=== PATIENT | male | born 1940 | race Caucasian/White ===

== ENCOUNTER 2017-01-07 12:52 | Emergency (ER) | payer MEDICARE ==
--- NOTE | 2017-01-07 15:38 | ER NURSING DOCUMENTATION ---
Nurse's Notes [facility] Name:Shane Dougherty Age:76 yrs Sex:Male :1940 Arrival Date:01/07/2017 Time:12:52 Bed6 Private MD: Diagnosis:Hand Laceration-4cm length; Simple Closure by MD Presentation: 01/07 12:56 Presenting complaint: Patient states: Was making a knife and had the it in a clamp, the rs knife came loose and cut his hand along the left 2nd digit. Occurred just [employer]. Tetanus is UTD. Transition of care: Home. Complicating Factors: There are no complicating factors for this patient. 12:56 Acuity: GÓMEZ 3 rs 12:56 Method Of Arrival: Private Vehicle rs Triage Assessment: 13:20 General: Appears in no apparent distress, comfortable, well developed, well nourished, rs well groomed, Behavior is anxious, cooperative, pleasant. Pain: Denies pain. Neuro: No deficits noted. Level of Consciousness is awake, alert, Oriented to person, place, time, event. Cardiovascular: No deficits noted. Capillary refill < 3 seconds Pulses are 3+ in right radial artery and left radial artery. Respiratory: No deficits noted. Respiratory effort is even, unlabored, Respiratory pattern is regular, symmetrical. Musculoskeletal: No deficits noted. Circulation, motion, and sensation intact Capillary refill < 3 seconds Range of motion intact in Left 2nd digit Denies weakness in left 2nd digit. Injury Description: Laceration sustained to left 2nd digit is clean, 2.6 to 7.5 cm long, bleeding moderately, is bleeding moderately. Historical: - Allergies: No known drug Allergies; - Home Meds: 1. Lisinopril Oral - PMHx: Hypertension; - PSHx: None; - Tetanus: < 10 years. - Ebola Screening: : Patient negative for fever greater than or equal to 101.5 degrees Fahrenheit, and additional compatible Ebola Virus Disease symptoms. Patient denies exposure to infectious person. Patient denies travel to an Ebola-affected area in the 21 days before illness onset. No symptoms or risks identified at this time. . - Immunization history: Unable to Obtain. - Social history: Smoking status: Patient states was never smoker of tobacco. Screenin:36 Infectious Disease Risk None. Abuse screen: Denies threats or abuse. Nutritional rs screening: No deficits noted. Assessment: 13:35 See Triage Assessment done by same RN. rs Vital Signs: 13:03 BP 120 / 86 (auto/); rs 13:07 Pulse 61; Resp 20; Temp 97.9; Pulse Ox 92% on R/A; Pain 3/10; rs Pat Coma Score: 13:20 Eye Response: spontaneous(4). Verbal Response: oriented(5). Motor Response: obeys cd commands(6). Total: 15. ED Course: 12:53 Patient arrived in ED. we 12:55 Luna Conway, RN is Primary Nurse. rs 13:15 Notified ED Physician of patient's arrival and chief complaint. Dr. Chambers notified. Arm rs band placed on Bed in low position Call Light in Reach HOB Elevated Side rails up x1. Family accompanied patient. Bandage applied. Pressure dressing applied. 13:19 Triage completed. rs 13:36 Wound care to laceration was Irrigation with: per MD at his request. rs 13:37 Resting quietly. rs 13:51 Brendan Chambers MD is Attending Physician. cd 15:32 Wound care located on left hand was dressed with bacitracin 4X4s, Telfa jazmin wrap, rs Patient tolerated well. Administered Medications: No medications were administered Outcome: 15:19 Discharge ordered by MD. cd 15:37 Discharged to home ambulatory. rs 15:37 Condition: improved 15:37 Discharge instructions given to patient, significant other, Instructed on discharge instructions, follow up and referral plans. medication usage, Demonstrated understanding of instructions, medications, Prescriptions given X 1. 15:38 Patient left the ED. rs 01/08 13:14 Discharge F/U Call: Spoke with: patient. Overall Care on a scale of 1-10 with 10 ma being the best care, you rate our care as: Other comments: Pt states care was very good, state had to wait some abdi s/t transfer of another patient by helicopter Verbalizes understanding of same States Dr Chambers gave wonderful care as did all staff and finger is doing fine Signatures: Luna Conway RN DENNIS rs Natalie Unger RN RN ma Daley, Chris, MD MD cd Elder, Weston we
--- NOTE | 2017-01-07 15:38 | ER PHYSICIAN DOCUMENTATION ---
Physician Documentation [facility] Name:Shane Dougherty Age:76 yrs Sex:Male :1940 Arrival Date:01/07/2017 Time:12:52 Bed6 Private MD: Brendan Shanks Disposition: 01/07/17 15:19 Discharged to Home/Self Care. Impression: Hand Laceration - 4cm length; Simple Closure by MD. - Condition is Good. - Discharge Instructions: LACERATION, Hand. - Prescriptions for Cephalexin 250 mg Oral - take 1 capsule by ORAL route every 6 hours for 10 days; 16 capsule. - Medical Reconciliation form form. - Follow up: Emergency Department; When: 01/19/2017; Reason: Recheck today's complaints, Continuance of care. - Problem is new. - Symptoms are resolved. - Notes: Keep wound clean, dry and covered. Wash daily with soap and water, dry well, place Bacitracin Ointment on wound and dress. No more Ointment after day three. Take Keflex 250mg by mouth every 6 hours for 4 days. Return in 12 days for suture removal HPI: 01/07 13:00 This 76 yrs old Male presents to ER via Private Vehicle with complaints of cd Laceration To Hand - LEFT. 13:00 The patient has a laceration related to: doing crafts, from a knife, occurred at home, cd The injury was accidental. The laceration(s) is(are) located on the dorsal aspect of proximal phalanx of left index finger. Onset: The symptom(s)/episode began/occurred acutely, just prior to arrival. Associated signs and symptoms: The patient has no apparent associated signs or symptoms. The patient has not experienced similar symptoms in the past. Patient's tetanus status is UTD. Historical: - Allergies: No known drug Allergies; - Home Meds: 1. Lisinopril Oral - PMHx: Hypertension; - PSHx: None; - Tetanus: < 10 years. - Ebola Screening: : Patient negative for fever greater than or equal to 101.5 degrees Fahrenheit, and additional compatible Ebola Virus Disease symptoms. Patient denies exposure to infectious person. Patient denies travel to an Ebola-affected area in the 21 days before illness onset. No symptoms or risks identified at this time. . - Immunization history: Unable to Obtain. - Social history: Smoking status: Patient states was never smoker of tobacco. ROS: 13:20 Constitutional: Negative for poor PO intake. cd 13:20 MS/extremity: Positive for laceration, tenderness, Negative for swelling. 13:20 Skin: Positive for laceration(s), of the dorsal aspect of proximal phalanx of left index finger. 13:20 Neuro: Negative for numbness, tingling, weakness. 13:20 All other systems are negative. Exam: 13:20 Musculoskeletal/extremity: Extremities: grossly normal except: noted in the dorsal cd aspect of proximal phalanx of left index finger: laceration, ROM: intact in all extremities, Circulation is intact in all extremities. Sensation intact. Joints: All joints are normal except the MCP of left index finger displays minor entrance into the joint...which was thoroughly irrigated with two liters NS, Tendon exam: specific tendon testing normal through active and passive range of motion 13:20 Constitutional: The patient appears alert, awake, well developed, well nourished, anxious, in obvious distress, mildly distressed. 13:20 Skin: Appearance: normal except for affected area, injury, laceration(s), the wound is approximately 4 cm(s), with a depth of 0.5 cm(s), of the dorsal aspect of proximal phalanx of left index finger, that can be described as clean, no foreign body, linear, without bleeding. Vital Signs: 13:03 BP 120 / 86 (auto/); rs 13:07 Pulse 61; Resp 20; Temp 97.9; Pulse Ox 92% on R/A; Pain 3/10; rs Pat Coma Score: 13:20 Eye Response: spontaneous(4). Verbal Response: oriented(5). Motor Response: obeys cd commands(6). Total: 15. Laceration: 13:20 Wound Repair of 4cm ( 1.6in ) subcutaneous laceration to dorsal aspect of proximal cd phalanx of left index finger. Linear shaped.. Hemostasis noted.. Distal neuro/vascular/tendon intact. Anesthesia: Wound infiltrated with 5 mls of 2% lidocaine. Wound prep: Extensive cleansing with hibiclenz, Wound explored moderately, Copious irrigation. Skin closed with 14 5-0 Ethilon using Horizontal mattress sutures. Dressed with Bacitracin, 4x4's, Matt. Patient tolerated well. MDM: 13:51 Patient medically screened. cd 15:00 Data reviewed: vital signs, nurses notes, and as a result, I will discharge patient. cd Counseling: I had a detailed discussion with the patient and/or guardian regarding: the historical points, exam findings, and any diagnostic results supporting the discharge/admit diagnosis, the need for outpatient follow up, for a recheck, suture removal in the ED in 12 days. Response to treatment: the patient's symptoms have markedly improved after treatment, the patient's condition has returned to base line, and as a result, I will discharge patient. 01/09 13:17 Data interpreted: Pulse oximetry: on room air is 92 %. Interpretation: normal. cd Dispensed Medications: No medications were administered Signatures: Luna Conway, DENNIS RN rs Brendan Chambers MD MD cd
== END 2017-01-07 15:38 | disposition home or self-care (01) ==
LOC: ER 12:52
DX: S61.211A Laceration without foreign body of left index finger without damage to nail, initial encounter (principal); W26.0XXA Contact with knife, initial encounter; Y92.019 Unspecified place in single-family (private) house as the place of occurrence of the external cause; Y93.D9 Activity, other involving arts and handcrafts; I10 Essential (primary) hypertension; Z79.899 Other long term (current) drug therapy
CPT/HCPCS: 12042; 99283

== ENCOUNTER 2017-01-19 14:02 | Emergency (ER) | payer MEDICARE ==
--- NOTE | 2017-01-19 14:19 | ER NURSING DOCUMENTATION ---
Nurse's Notes [facility] Name:Shane Dougherty Age:77 yrs Sex:Male :1940 Arrival Date:01/19/2017 Time:14:02 Bed1 Private MD:Og Xie Diagnosis:Suture Removal Presentation: 01/19 14:06 Acuity: GÓMEZ 5 rh 14:14 Presenting complaint: Patient states: suture removal. Transition of care: Home. rh 14:14 Method Of Arrival: Private Vehicle Triage Assessment: 14:14 General: Appears in no apparent distress, Behavior is cooperative. Pain: Denies pain. rh Derm: Skin is intact, is healthy with good turgor, Skin is pink, warm & dry. Suture site is clean, well approximated, no inflammation, draining or foul odor. Historical: - Allergies: No known drug Allergies; - Home Meds: 1. Lisinopril Oral - PMHx: HYPERTENSION; Hand Laceration - 4cm lengthSimple Closure by MD (January 07, 2017); - PSHx: NONE; - Tetanus: < 10 years. - Ebola Screening: : Patient negative for fever greater than or equal to 101.5 degrees Fahrenheit, and additional compatible Ebola Virus Disease symptoms. - Immunization history: Flu Vaccine < 1 year. - Social history: Smoking status: Patient uses tobacco products, current every day smoker. Screenin:16 Infectious Disease Risk None. Abuse screen: Denies threats or abuse. Denies injuries rh from another. Nutritional screening: No deficits noted. Assessment: 14:16 See Triage Assessment done by same RN. rh Vital Signs: 14:16 BP 153 / 84; Pulse 71; Resp 15; Temp 98.0(TE); Pulse Ox 94% on R/A; Weight 96.16 kg; rh Height 5 ft. 11 in. (180.34 cm); Pain 0/10; 14:16 Body Mass Index 29.57 (96.16 kg, 180.34 cm) rh ED Course: 14:04 Patient arrived in ED. lm3 14:04 Og Xie MD is Private Physician. lm3 14:05 Dionisio Ryan MD is Attending Physician. ne 14:06 Celina Elena is Primary Nurse. rh 14:06 Triage completed. rh 14:16 Valuables Remains with patient Patient has correct armband on for positive rh identification. 14:16 Removed sutures from dorsal aspect of proximal phalanx of left index finger Suture site rh is well healed Patient tolerated well. Administered Medications: No medications were administered Outcome: 14:15 No charge visit due to suture removal. 14:17 Discharged to home 14:17 Condition: improved 14:17 Instructed on follow up and referral plans. wound care. 14:17 Discharge ordered by MD. 14:18 Patient left the ED. 01/20 10:46 Discharge F/U Call: Unable to reach: no answer lp Signatures: Callie Whyte, RN RN Dionisio Ryan MD MD sc Hofsess, Rachel Liz Gillis lm3
== END 2017-01-19 14:18 | disposition home or self-care (01) ==
LOC: ER 14:02
DX: Z48.02 Encounter for removal of sutures (principal); S61.211D Laceration without foreign body of left index finger without damage to nail, subsequent encounter